=== PATIENT | male | born 2000 | race Asian ===

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

== ENCOUNTER 2021-11-27 11:40 | Emergency (ER) | payer MEDICAID, OTHER ==
[~2021-11-27] VITALS: Ht 157.5 cm; Wt 40.9 kg
[2021-11-27 12:24] LABS: BASOPHILS % (AUTO) 0.1 % (0.0-2.0); EOSINOPHILS % (AUTO) 0.3 % (1.0-6.0); HEMATOCRIT 42.6 % (41-53); LYMPHOCYTES # (AUTO) 0.8 K/uL (1.0-4.8); LYMPHOCYTES % (AUTO) 18.5 % (22.0-44.0); MEAN CORPUSCULAR HEMOGLOBIN 29.6 pg (26.0-34.0); MEAN CORPUSCULAR HGB CONC 35.2 G/dL (31.0-37.0); MEAN CORPUSCULAR VOLUME 84 fL (80-100); MONOCYTES # (AUTO) 0.3 K/uL (0.1-1.0); MONOCYTES % (AUTO) 7.5 % (2.0-9.0); NEUTROPHILS # (AUTO) 3.3 K/uL (1.8-7.7); NEUTROPHILS % (AUTO) 73.6 % (40.0-70.0); PLATELET COUNT (AUTO) 307 K/uL (150-450); RED BLOOD CELL COUNT(AUTO) 5.06 MIL/uL (4.50-5.90); RED CELL DISTRIBUTION WIDTH 12.3 % (11.5-14.5)
[2021-11-27 12:32] LABS: ANION GAP 11 mmol/L (8-16); CALCIUM, TOTAL 9.5 mg/dL (8.8-10.5); CARBON DIOXIDE 28 mmol/L (22-29); CHLORIDE 101 mmol/L (98-107); CREATININE 0.85 mg/dL (0.60-1.30); GLOMERULAR FILTR. RATE CALC > 60 mL/min (>60); GLUCOSE,RANDOM 89 mg/dL (70-110); POTASSIUM 4.3 mmol/L (3.5-5.1); SODIUM SERUM 140 mmol/L (136-145); UREA NITROGEN, BLOOD 16 mg/dL (7-18)
[2021-11-27 12:38] LABS: ALANINE AMINOTRANSFERASE 21 U/L (12-78); ALBUMIN 4.4 g/dL (3.4-5.0); ALKALINE PHOSPHATASE 69 U/L (46-116); ASPARTATE AMINOTRANSFERASE 20 U/L (15-37); BILIRUBIN,TOTAL 0.8 mg/dL (0.1-1.0); TOTAL PROTEIN, SERUM 7.9 g/dL (6.4-8.2)
[2021-11-27 12:49] LABS: AMPHET/METH SCREEN,URINE NEGATIVE (NEGATIVE); BARBITURATE SCREEN, URINE NEGATIVE (NEGATIVE); BENZODIAZEPINES SCREEN,URINE NEGATIVE (NEGATIVE); CANNABINOID SCREEN,URINE NEGATIVE (NEGATIVE); COCAINE SCREEN,URINE NEGATIVE (NEGATIVE); METHADONE SCREEN, URINE NEGATIVE (NEGATIVE); OPIATE SCREEN,URINE NEGATIVE (NEGATIVE)
[2021-11-27 12:50] LABS: PHENCYCLIDINE SCREEN,URINE NEGATIVE (NEGATIVE)
[2021-11-27 14:04] LABS: COVID AG,FIA SOURCE NASAL SWAB
[2021-11-27 14:30] VITALS: BP 132/83
[2021-12-15] MEDS ORDERED: OMEG-135 PO (21:04)
== END 2021-11-27 14:41 | disposition home or self-care (01) ==
LOC: EMS 11:42
DX: F32.9 Major depressive disorder, single episode, unspecified (principal); R45.851 Suicidal ideations; Z20.822 Contact with and (suspected) exposure to COVID-19
CPT/HCPCS: 36415; 80053; 80307; 85025; 87426; 99284; G0480

== ENCOUNTER 2021-12-12 12:55 | Inpatient (IN) | payer OTHER, MEDICAID ==
[~2021-12-12] VITALS: Ht 160 cm; Wt 42.7 kg
[2021-12-12 13:17] LABS: BASOPHILS % (AUTO) 0.2 % (0.0-2.0); EOSINOPHILS % (AUTO) 2.3 % (1.0-6.0); HEMATOCRIT 39.7 % (41-53); LYMPHOCYTES # (AUTO) 1.3 K/uL (1.0-4.8); LYMPHOCYTES % (AUTO) 28.7 % (22.0-44.0); MEAN CORPUSCULAR HEMOGLOBIN 29.7 pg (26.0-34.0); MEAN CORPUSCULAR HGB CONC 35.2 G/dL (31.0-37.0); MEAN CORPUSCULAR VOLUME 84 fL (80-100); MONOCYTES # (AUTO) 0.4 K/uL (0.1-1.0); MONOCYTES % (AUTO) 9.5 % (2.0-9.0); NEUTROPHILS # (AUTO) 2.8 K/uL (1.8-7.7); NEUTROPHILS % (AUTO) 59.3 % (40.0-70.0); PLATELET COUNT (AUTO) 311 K/uL (150-450); RED CELL DISTRIBUTION WIDTH 12.3 % (11.5-14.5)
[2021-12-12 13:27] LABS: ANION GAP 7 mmol/L (8-16); CALCIUM, TOTAL 9.1 mg/dL (8.8-10.5); CARBON DIOXIDE 30 mmol/L (22-29); CHLORIDE 104 mmol/L (98-107); CREATININE 0.99 mg/dL (0.60-1.30); GLOMERULAR FILTR. RATE CALC > 60 mL/min (>60); GLUCOSE,RANDOM 100 mg/dL (70-110); POTASSIUM 3.8 mmol/L (3.5-5.1); SODIUM SERUM 141 mmol/L (136-145); UREA NITROGEN, BLOOD 12 mg/dL (7-18)
[2021-12-12 13:34] LABS: ALANINE AMINOTRANSFERASE 23 U/L (12-78); ALBUMIN 3.9 g/dL (3.4-5.0); ALKALINE PHOSPHATASE 63 U/L (46-116); ASPARTATE AMINOTRANSFERASE 19 U/L (15-37); BILIRUBIN,TOTAL 0.2 mg/dL (0.1-1.0); TOTAL PROTEIN, SERUM 7.6 g/dL (6.4-8.2)
[2021-12-12 13:48] LABS: COVID AG,FIA SOURCE NASAL SWAB
[2021-12-12] MEDS ORDERED: ZOLPIDEM TARTRATE 10 MG TABLET PO PRN (16:00)
[2021-12-12] MEDS ORDERED: LOPERAMIDE HCL 2 MG CAPSULE PO PRN (16:00)
[2021-12-12] MEDS ORDERED: PROMETHAZINE HCL 25 MG TABLET PO PRN (16:00)
[2021-12-12] MEDS ORDERED: MAG HYDROX/AL HYDROX/SIMETH ES 30 ML SUSPENSION UDCUP PO PRN (16:00)
[2021-12-12] MEDS ORDERED: GuaiFENesin/D-METHORPHAN [SUGAR-FREE] 200-20MG/10 ML SYRUP UDCUP PO PRN (16:00)
[2021-12-12] MEDS ORDERED: LORazepam 2 MG TABLET PO PRN (16:00)
[2021-12-12] MEDS ORDERED: ACETAMINOPHEN 325 MG TABLET PO PRN (16:00)
[2021-12-12] MEDS ORDERED: TUBERCULIN, PURIFIED PROTEIN DERIVATIVE 5 TU/0.1 ML SYRINGE ID ONE (16:00)
[2021-12-12] MEDS ORDERED: HydrOXYzine PAMOATE 50 MG CAPSULE PO PRN (16:00)
[2021-12-12] MEDS ORDERED: QUEtiapine FUMARATE 100 MG TABLET PO PRN (16:00)
[2021-12-12] MEDS ORDERED: MAGNESIUM HYDROXIDE SUSPENSION 30 ML UDCUP PO PRN (16:00)
[2021-12-12] MEDS: THIAMINE 100 MG TABLET PO SCH (16:43)
[2021-12-12 17:10] LABS: AMPHET/METH SCREEN,URINE NEGATIVE (NEGATIVE); BARBITURATE SCREEN, URINE NEGATIVE (NEGATIVE); BENZODIAZEPINES SCREEN,URINE NEGATIVE (NEGATIVE); CANNABINOID SCREEN,URINE NEGATIVE (NEGATIVE); COCAINE SCREEN,URINE NEGATIVE (NEGATIVE); METHADONE SCREEN, URINE NEGATIVE (NEGATIVE); OPIATE SCREEN,URINE NEGATIVE (NEGATIVE); PHENCYCLIDINE SCREEN,URINE NEGATIVE (NEGATIVE)
[2021-12-12 19:56] VITALS: BP 140/99
[2021-12-12] MEDS: MELATONIN 5 MG TABLET PO SCH (21:07)
[2021-12-13 08:10] VITALS: BP 122/89
[2021-12-13] MEDS: FLUoxetine HCL 20 MG CAPSULE PO SCH (08:22)
[2021-12-13] MEDS: OMEGA-3/DHA/EPA/FISH OIL 1,000 MG CAPSULE PO SCH (08:22)
[2021-12-13] MEDS: FOLIC ACID 1 MG TABLET PO SCH (08:22)
[2021-12-13] MEDS: MULTIVITAMINS WITH MINERALS, THERAPEUTIC TABLET PO SCH (08:22)
[2021-12-13] MEDS: NALTREXONE HCL 50 MG TABLET PO SCH (08:22)
[2021-12-13] MEDS: THIAMINE 100 MG TABLET PO SCH ×2 (08:22→17:20)
[2021-12-13 09:21] LABS: HEMOGLOBIN A1C 5.2 % (3.8-5.6)
[2021-12-13 09:43] LABS: CHOL/HDL RATIO 2.6 (4.2-7.3); FREE T4 (FREE THYROXINE) 0.91 ng/dL (0.76-1.46); THYROID STIMULATING HORMONE 3.7 uIU/mL (0.36-3.74)
[2021-12-13 16:14] VITALS: BP 131/82
[2021-12-13] MEDS ORDERED: OLANZapine 5 MG RAPDIS TABLET PO SCH (21:00)
[2021-12-13] MEDS ORDERED: OLANZapine 5 MG RAPDIS TABLET PO ONE (21:00)
[2021-12-13] MEDS ORDERED: OLANZapine 5 MG RAPDIS TABLET PO PRN (21:00)
[2021-12-13] MEDS: MELATONIN 5 MG TABLET PO SCH (21:08)
[2021-12-14 08:05] LABS: MAGNESIUM 1.9 mg/dL (1.80-2.40); PHOSPHORUS 4.3 mg/dL (2.5-4.9)
[2021-12-14] MEDS: FLUoxetine HCL 20 MG CAPSULE PO SCH (09:57)
[2021-12-14] MEDS: THIAMINE 100 MG TABLET PO SCH ×2 (09:57→17:18)
[2021-12-14] MEDS: OMEGA-3/DHA/EPA/FISH OIL 1,000 MG CAPSULE PO SCH (09:57)
[2021-12-14] MEDS: NALTREXONE HCL 50 MG TABLET PO SCH (09:57)
[2021-12-14] MEDS: MULTIVITAMINS WITH MINERALS, THERAPEUTIC TABLET PO SCH (09:57)
[2021-12-14] MEDS: FOLIC ACID 1 MG TABLET PO SCH (09:57)
[2021-12-14 16:42] VITALS: BP 100/61
[2021-12-14] MEDS: MELATONIN 5 MG TABLET PO SCH (20:20)
[2021-12-14] MEDS: OLANZapine 10 MG RAPDIS TABLET PO SCH (20:21)
[2021-12-15 08:00] VITALS: BP 122/76
[2021-12-15] MEDS: NALTREXONE HCL 50 MG TABLET PO SCH (09:40)
[2021-12-15] MEDS: MULTIVITAMINS WITH MINERALS, THERAPEUTIC TABLET PO SCH (09:42)
[2021-12-15] MEDS: FOLIC ACID 1 MG TABLET PO SCH (09:42)
[2021-12-15] MEDS: FLUoxetine HCL 20 MG CAPSULE PO SCH (09:42)
[2021-12-15] MEDS: THIAMINE 100 MG TABLET PO SCH ×2 (09:42→16:34)
[2021-12-15] MEDS: OMEGA-3/DHA/EPA/FISH OIL 1,000 MG CAPSULE PO SCH (09:42)
[2021-12-15 16:46] VITALS: BP 119/68
[2021-12-15] MEDS: MELATONIN 5 MG TABLET PO SCH (20:08)
[2021-12-15] MEDS: OLANZapine 10 MG RAPDIS TABLET PO SCH (20:08)
[2021-12-15] MEDS ORDERED: NALT50TA PO (21:04)
[2021-12-15] MEDS ORDERED: OMEG-108 PO (21:04)
[2021-12-15] MEDS ORDERED: PROZ20 PO (21:04)
[2021-12-15] MEDS ORDERED: MELA5TAB40 PO (21:04)
[2021-12-15] MEDS ORDERED: OLAN10TA26 PO (21:04)
[2021-12-16 08:00] VITALS: BP 108/65
[2021-12-16] MEDS ORDERED: FLUoxetine HCL 20 MG CAPSULE PO SCH (09:00)
[2021-12-16] MEDS: NALTREXONE HCL 50 MG TABLET PO SCH (10:02)
[2021-12-16] MEDS: FOLIC ACID 1 MG TABLET PO SCH (10:03)
[2021-12-16] MEDS: MULTIVITAMINS WITH MINERALS, THERAPEUTIC TABLET PO SCH (10:03)
[2021-12-16] MEDS: THIAMINE 100 MG TABLET PO SCH (10:03)
[2021-12-16] MEDS: OMEGA-3/DHA/EPA/FISH OIL 1,000 MG CAPSULE PO SCH (10:03)
== END 2021-12-16 13:40 | disposition home or self-care (01) | DRG 885 ==
LOC: EMS 12:55 → 3EC 14:57
PROVIDERS: ADMIT Psychiatry & Neurology Psychiatry; ATTEND Psychiatry & Neurology Psychiatry
DX: F25.9 Schizoaffective disorder, unspecified (principal); R45.851 Suicidal ideations; Z20.822 Contact with and (suspected) exposure to COVID-19; F32.A Depression, unspecified; F17.210 Nicotine dependence, cigarettes, uncomplicated
CPT/HCPCS: 80053; 80061; 83036; 83735; 84100; 84439; 84443; 85025; 86592; 99285; G0480; Q9967

== ENCOUNTER 2023-08-22 18:53 | Inpatient (IN) | payer MEDICAID, OTHER ==
[~2023-08-22] VITALS: Ht 160 cm; Wt 53.5 kg
[~2023-08-22 18:53] MED LIST: MELA5TAB40 PO; NALT50TA PO; OLAN10TA26 PO; OMEG-135 PO; PROZ20 PO
[2023-08-22 20:40] LABS: COVID AG,FIA SOURCE NASOPHARYNGEAL
[2023-08-22 20:54] LABS: BASOPHILS % (AUTO) 0.1 % (0.0-2.0); EOSINOPHILS % (AUTO) 0.2 % (1.0-6.0); HEMATOCRIT 45.7 % (41-53); LYMPHOCYTES # (AUTO) 1.2 K/uL (1.0-4.8); LYMPHOCYTES % (AUTO) 15.1 % (22.0-44.0); MEAN CORPUSCULAR HEMOGLOBIN 29.5 pg (26.0-34.0); MEAN CORPUSCULAR HGB CONC 35.1 G/dL (31.0-37.0); MEAN CORPUSCULAR VOLUME 84 fL (80-100); MONOCYTES # (AUTO) 0.5 K/uL (0.1-1.0); MONOCYTES % (AUTO) 6.2 % (2.0-9.0); NEUTROPHILS # (AUTO) 6.4 K/uL (1.8-7.7); NEUTROPHILS % (AUTO) 78.4 % (40.0-70.0); PLATELET COUNT (AUTO) 430 K/uL (150-450); RED BLOOD CELL COUNT(AUTO) 5.43 MIL/uL (4.50-5.90); RED CELL DISTRIBUTION WIDTH 12.5 % (11.5-14.5); WHITE BLOOD COUNT (AUTO) 8.1 K/uL (4.5-11.0)
[2023-08-22 20:58] LABS: SARS-COV2 (COVID) ANTIGEN,FIA Negative (Negative)
[2023-08-22 21:07] LABS: ALCOHOL, BLOOD (SERUM) < 3 mg/dL (0-10); ANION GAP 8 mmol/L (8-16); CALCIUM, TOTAL 9.5 mg/dL (8.8-10.5); CARBON DIOXIDE 30 mmol/L (22-29); CHLORIDE 98 mmol/L (98-107); GLOMERULAR FILTR. RATE CALC > 60 mL/min (>60); GLUCOSE,RANDOM 86 mg/dL (70-110); POTASSIUM 3.7 mmol/L (3.5-5.1); SODIUM SERUM 136 mmol/L (136-145); UREA NITROGEN, BLOOD 9 mg/dL (7-18)
[2023-08-22 21:10] LABS: ALANINE AMINOTRANSFERASE 22 U/L (12-78); ALBUMIN 4.4 g/dL (3.4-5.0); ALKALINE PHOSPHATASE 91 U/L (46-116); ASPARTATE AMINOTRANSFERASE 17 U/L (15-37); BILIRUBIN,TOTAL 0.8 mg/dL (0.1-1.0); TOTAL PROTEIN, SERUM 8.6 g/dL (6.4-8.2)
[2023-08-22] MEDS ORDERED: LORazepam 2 MG/ML VIAL IM ONE (21:15)
[2023-08-22] MEDS ORDERED: DiphenhydrAMINE HCL 50 MG/ML VIAL IM ONE (21:15)
[2023-08-22] MEDS ORDERED: HALOPERIDOL LACTATE 5 MG/ML VIAL IM ONE (21:15)
[2023-08-22] MEDS ORDERED: ZOLPIDEM TARTRATE 10 MG TABLET PO PRN (22:30)
[2023-08-23 12:44] VITALS: BP 122/86; PULSE 98; RESP 18; TEMP 98; O2SAT 99
[2023-08-23] MEDS ORDERED: INFLUENZA VIRUS VACCINE QVS 2023-24 (6MO+)/PF 60 MCG/0.5 ML SYRINGE IM. ONE (13:00)
[2023-08-23] MEDS: OLANZapine 10 MG RAPDIS TABLET PO SCH ×2 (13:15→20:36)
[2023-08-23] MEDS ORDERED: MAG HYDROX/ALUMINUM HYD/SIMETH ES 30 ML SUSPENSION UDCUP PO PRN (17:15)
[2023-08-23] MEDS ORDERED: ONDANSETRON HCL 4 MG TABLET PO PRN (17:15)
[2023-08-23] MEDS ORDERED: BACITRACIN 28 GM OINTMENT TP PRN (17:15)
[2023-08-23] MEDS ORDERED: ACETAMINOPHEN 325 MG TABLET PO PRN (17:15)
[2023-08-23] MEDS ORDERED: PETROLATUM,WHITE 28 GM JELLY TP PRN (17:15)
[2023-08-23] MEDS ORDERED: MAGNESIUM HYDROXIDE SUSPENSION 30 ML UDCUP PO PRN (17:15)
[2023-08-23] MEDS ORDERED: LOPERAMIDE HCL 2 MG CAPSULE PO PRN (17:15)
[2023-08-23] MEDS ORDERED: BENZOCAINE/MENTHOL LOZENGE PO PRN (17:15)
[2023-08-23] MEDS ORDERED: ALBUTEROL SULFATE HFA 90 MCG/PUFF 8 GM INHALER IH PRN (17:15)
[2023-08-23] MEDS ORDERED: OMEPRAZOLE 20 MG CAPSULE PO PRN (17:15)
[2023-08-23] MEDS ORDERED: DOCUSATE SODIUM 100 MG CAPSULE PO PRN (17:15)
[2023-08-23] MEDS ORDERED: CloNIDine HCL 0.1 MG TABLET PO PRN (17:15)
[2023-08-23] MEDS ORDERED: IBUPROFEN 600 MG TABLET PO PRN (17:15)
[2023-08-23 20:10] VITALS: BP 124/82; PULSE 94; RESP 18; TEMP 98; O2SAT 97
[2023-08-23] MEDS: LORazepam 2 MG TABLET PO PRN (20:35)
[2023-08-24 08:18] VITALS: BP_SYST 131; PULSE 80; RESP 17; TEMP 98; O2SAT 99
[2023-08-24] MEDS: LORazepam 2 MG TABLET PO PRN (09:01)
[2023-08-24] MEDS: HALOPERIDOL 5 MG TABLET PO PRN (09:01)
[2023-08-24] MEDS: FLUoxetine HCL 20 MG CAPSULE PO SCH (09:01)
[2023-08-24] MEDS: OMEGA-3/DHA/EPA/FISH OIL 1,000 MG CAPSULE PO SCH (09:02)
[2023-08-24] MEDS: OLANZapine 10 MG RAPDIS TABLET PO SCH (20:12)
[2023-08-25 02:07] LABS: HEPATITIS C AB (EIA) Non Reactive (Non Reactive)
[2023-08-25 04:42] VITALS: RESP 18; TEMP 97.9
[2023-08-25 08:17] VITALS: BP 140/82; PULSE 68; RESP 17; TEMP 97.3; O2SAT 100
[2023-08-25] MEDS: OMEGA-3/DHA/EPA/FISH OIL 1,000 MG CAPSULE PO SCH (08:22)
[2023-08-25] MEDS: FLUoxetine HCL 20 MG CAPSULE PO SCH (08:22)
[2023-08-25] MEDS: LORazepam 2 MG TABLET PO PRN ×2 (08:23→20:28)
[2023-08-25] MEDS: HALOPERIDOL 5 MG TABLET PO PRN (08:23)
[2023-08-25 20:14] VITALS: BP 135/81; PULSE 102; RESP 18; TEMP 97.8; O2SAT 96
[2023-08-25] MEDS: OLANZapine 10 MG RAPDIS TABLET PO SCH (20:27)
[2023-08-26 08:14] VITALS: BP 132/89; PULSE 68; RESP 16; TEMP 97.3; O2SAT 98
[2023-08-26] MEDS: OMEGA-3/DHA/EPA/FISH OIL 1,000 MG CAPSULE PO SCH (08:47)
[2023-08-26] MEDS: HALOPERIDOL 5 MG TABLET PO PRN (08:47)
[2023-08-26] MEDS: LORazepam 2 MG TABLET PO PRN (08:47)
[2023-08-26 20:40] VITALS: RESP 18
[2023-08-26] MEDS: OLANZapine 10 MG RAPDIS TABLET PO SCH (20:55)
[2023-08-27] MEDS: OMEGA-3/DHA/EPA/FISH OIL 1,000 MG CAPSULE PO SCH (08:35)
[2023-08-27 08:37] VITALS: BP 131/79; PULSE 82; RESP 18; TEMP 97.3; O2SAT 98
[2023-08-27] MEDS: OLANZapine 10 MG RAPDIS TABLET PO SCH (20:08)
[2023-08-27 20:22] VITALS: BP 127/82; PULSE 103; RESP 20; TEMP 97.5; O2SAT 99
[2023-08-28] MEDS: OMEGA-3/DHA/EPA/FISH OIL 1,000 MG CAPSULE PO SCH (08:34)
[2023-08-28 12:44] VITALS: BP 120/84; PULSE 98; RESP 18; TEMP 98.3; O2SAT 99
[2023-08-28 20:15] VITALS: BP 138/82; PULSE 69; RESP 18; TEMP 98; O2SAT 98
[2023-08-28] MEDS: OLANZapine 10 MG RAPDIS TABLET PO SCH (21:09)
[2023-08-29] MEDS: OMEGA-3/DHA/EPA/FISH OIL 1,000 MG CAPSULE PO SCH (08:02)
[2023-08-29 08:40] VITALS: BP 138/89; PULSE 80; RESP 18; TEMP 97.7; O2SAT 98
[2023-08-29] MEDS ORDERED: OLAN10TA26 PO (15:47)
[2023-08-29] MEDS: OLANZapine 10 MG RAPDIS TABLET PO SCH (20:30)
== END 2023-08-29 21:30 | disposition home or self-care (01) | DRG 750 ==
LOC: EMS 18:54 → B3A 08-23 07:07
PROVIDERS: ADMIT Psychiatry & Neurology Psychiatry; ATTEND Psychiatry & Neurology Psychiatry
DX: F20.9 Schizophrenia, unspecified (principal); F41.9 Anxiety disorder, unspecified; G47.00 Insomnia, unspecified; K59.00 Constipation, unspecified; Z78.1 Physical restraint status; Z87.891 Personal history of nicotine dependence
CPT/HCPCS: 80053; 85025; 86803; 87340; 99291; G0480; J1200; J1630; J2060